=== PATIENT | male | born 1940 | race Caucasian/White ===

== ENCOUNTER 2017-01-06 07:52 | Outpatient (CLI) | payer MEDICARE ==
[~2017-01-06] VITALS: Ht 172.7 cm; Wt 90.9 kg
--- NOTE | ~2017-01-06 | HEMODYNAMI ---
PATIENT:LIV MAHMOOD MEDICAL RECORD: [id number] : 38 LOCATION:[facility] ADMISSION DATE: 01/06/17 Generatedon:01/06/201710:11 Patient name: LIV MAHMOOD Patient #: [id number] SSN: : 1940 Date of study: 01/06/2017 Page: Of Hemodynamic Procedure Report Patient Data Patient Demographics Procedure consent was obtained First Name: LIV Gender: Male Last Name: TIMOTEO : 1940 Middle Initial: P Age: 76 year(s) Patient #: [id number] Race: Additional ID: [id number] Contact details Address: [address] [place] [address] State: [place] City: [place] Zip code: [address] Past Medical History Allergies Allergen Reaction Date Comments Reported Other allergy 01/06/2017 adhesive Admission Admission Data Admission Date: 01/06/2017 Admission Time: 7:52 Admit Source: Other Lab Results Lab Result Date: 01/06/2017 Lab Result Time: 0:00 Biochemistry Name Units Result Min Max Creatinine mg/dl 1.2 --(---*)-- 0.6 1.3 CBC Name Units Result Min Max Hemoglobin g/dl 14.8 --(-*--)-- 13.5 17.5 Procedure Procedure Types Cath Procedure Diagnostic Procedure [facility] w/Coronaries FFR/IVUS Intra-Coronary IVUS Initial PCI Procedure Coronary Stent Initial Miscellaneous Procedures Moderate Sedation up to 30 minutes Procedure Description Procedure Date Procedure Date: 01/06/2017 Procedure Start Time: 9:48 Procedure End Time: 10:10 Procedure Staff Name Function Donte Sweeney MD Performing Physician Randy Fonseca RN Nurse Mahendra Vicente RT Scrub Kaitlynn Conner RT Monitor Procedure Data Cath Procedure Fluoroscopy Diagnostic fluoroscopy Total fluoroscopy Time: 7.1 time: 7.1 min min Diagnostic fluoroscopy Total fluoroscopy dose: dose: 1511 mGy 1511 mGy Contrast Material Contrast Material Type Amount (ml) Isovue 300 150 Entry Location Entry Primary Successful Side Size Upsize Upsize Entry Closure Schuster ccessful Closure Location (Fr) 1 (Fr) 2 (Fr) Remarks Device Remarks Radial Right 6 Fr Mechanical artery Short Compression Estimated blood loss: 10 ml Diagnostic catheters Device Type Used For End Catheter Placement Cordis RBL 4 catheter (NO LV Angiography CHARGE) Cordis RBL 4 catheter (NO Left Coronary CHARGE) Angiography Cordis RBL 4 catheter (NO Right Coronary CHARGE) Angiography Procedure Complications No complications Procedure Medications Medication Administration Route Dosage Oxygen NC 2 l/min Heparin Flush Bag added to field 2 bags (1000units/500ml NS) Lidocaine 2% added to field 20 0.9% NaCl I.V. 100 ml/hr Versed I.V. 1 mg Fentanyl I.V. 50 mcg Radial Cocktail added to field 1 syringe (Verapomil 2mg/Nitro 400mcg/Heparin 1500units) Versed I.V. 1 mg Fentanyl I.V. 50 mcg Versed I.V. 1 mg Fentanyl I.V. 50 mcg Heparin Bolus I.V. 4000 units Versed I.V. 1 mg Fentanyl I.V. 50 mcg Versed I.V. 1 mg Hemodynamics Rest HGB: 14.8 (g/dl) Heart Rate: 48 (bpm) Pressure Samples Time Site Value (mmHg) Purpose Heart Use Rate(bpm) 9:51 LV 101/15,18 Snapshot 52 Snapshots Pre Cath Intra NCS Post Cath Vital Signs Time Heart Resp SPO2 etCO2 [id number] NIBP (mmHg) Rhythm Pain Sedation Rate (ipm) (%) (mmHg) (mmHg) Status Level (bpm) 9:29:28 46 20 99 0 0 165/77(137) SB 0 (11) 10(A) , No pain 9:34:53 46 16 100 0 0 159/82(134) SB 0 (11) 10(A) , No pain 9:39:22 46 21 96 0 0 147/78(103) SB 0 (11) 10(A) , No pain 9:43:32 43 16 96 0 0 109/79(106) SB 0 (11) 10(A) , No pain 9:47:38 48 15 94 0 0 113/83(94) SB 0 (11) 10(A) , No pain 9:51:52 55 15 96 0 0 102/64(87) SB 0 (11) 9(A) , No pain 9:56:01 62 17 94 0 0 102/64(94) NSR 0 (11) 9(A) , No pain 10:00:11 64 17 93 0 0 118/65(95) NSR 0 (11) 9(A) , No pain 10:04:27 62 16 96 0 0 111/65(87) NSR 0 (11) 9(A) , No pain 10:09:39 56 17 97 0 0 116/65(94) SB 0 (11) 10(A) , No pain Medications Time Medication Route Dose Verified Delivered Reason Note s Effectiveness by by 9:28:24 Oxygen NC 2 l/min Donte Buffie Per physician Patel Fonseca RN 9:28:32 Heparin Flush added 2 bags Donte Donte used for Bag to Patel Sweeney MD procedure (1000units/500ml field NS) 9:28:39 Lidocaine 2% added 20ml Donte Donte used for to vial Patel Sweeney MD procedure field 9:28:51 0.9% NaCl I.V. 100 Donte Buffie Per physician ml/hr Patel Fonseca RN 9:46:53 Versed I.V. 1 mg Donte Buffie for sedation Patel Fonseca RN 9:46:59 Fentanyl I.V. 50 mcg Donte Buffie for sedation Patel Fonseca RN 9:50:46 Radial Cocktail added 1 Donte Buffie used for (Verapomil to syringe Patel Fonseca RN procedure 2mg/Nitro field 400mcg/Heparin 1500units) 9:50:55 Versed I.V. 1 mg Donte Buffie for sedation Patel Fonseca RN 9:50:58 Fentanyl I.V. 50 mcg Donte Buffie for sedation Patel Fonseca RN 9:53:14 Versed I.V. 1 mg Donte Buffie for sedation Patel Fonseca RN 9:53:18 Fentanyl I.V. 50 mcg Donte Buffie for sedation Patel Fonseca RN 9:57:23 Heparin Bolus I.V. 4000 Donte Buffie for veri fied units Patel Fonseca RN anticoagulation with dr sweeney 9:59:14 Versed I.V. 1 mg Donte Buffie for sedation Tauth MD Fonseca RN 9:59:18 Fentanyl I.V. 50 mcg Donte Padilla for sedation Patel Fonseca RN 10:05:00 Versed I.V. 1 mg Donte Padilla for sedation Patel Fonseca RN Procedure Log Time Note 9::09 Time tracking: Regular hours 9:08:14 Plan of Care:Hemodynamics will remain stable., Cardiac rhythm will remain stable., Comfort level will be maintained., Respiratory function will remain adequate., Patient/ family verbilizes understanding of procedure., Procedure tolerated without complication., Recovers from procedure without complications.. 9:10:17 Kaitlynn Counts RT(R) sent for patient. Start room use. 9:10:47 H&P Date Dictated: 10/08/2016 Greater than 30 days; new H&P dictated by physician. Or brief H&P completed.. 9:11:27 Lab Result : Creatinine 1.2 mg/dl 9:11:27 Lab Result : Hemoglobin 14.8 g/dl 9:23:02 Patient received from Pre/Post Procedure Room to CCL 1 Alert and oriented. Tansferred to table in Supine position. 9:23:03 Warm blankets applied, and brii hugger turned on for patient comfort. 9:23:04 Correct patient and procedure confirmed by team. 9:23:06 Signed procedure consent form obtained from patient. 9:23:07 ECG and BP/O2 sat monitors applied to patient. 9:28:09 Vital chart was started 9:28:24 Oxygen 2 l/min NC was given by Randy Fonseca RN; Per physician; 9:28:32 Heparin Flush Bag (1000units/500ml NS) 2 bags added to field was given by Donte Sweeney MD; used for procedure; 9:28:39 Lidocaine 2% 20ml vial added to field was given by Donte Sweeney MD; used for procedure; 9:28:46 Baseline sample Acquired. 9:28:51 0.9% NaCl 100 ml/hr I.V. was given by Randy Fonseca RN; Per physician; 9:28:59 Baseline sample Acquired. 9:29:07 Rhythm: sinus bradycardia 9:29:09 Full Disclosure recording started 9:29:13 Pre-procedure instructions explained to patient. 9:29:13 Pre-op teaching completed and patient verbalized understanding. 9:29:18 Family in waiting room. 9:29:20 Patient NPO since Midnight. 9:29:42 Patient allergic to Other allergyadhesive 9:29:45 Is the patient allergic to Iodine/contrast media? No. 9:29:48 Was the patient premedicated? No 9:30:21 Is patient on blood thinner?Yes 9:30:24 ACC The patient was administered the following blood thiners within the last 24 hours: ACCPlavix 9:30:26 Patient diabetic? No. 9:30:29 Previous problem with sedation/anesthesia? No ? 9:30:32 Snore? No 9:30:33 Sleep apnea? No 9:30:33 Deviated septum? No 9:30:34 Opens mouth fully? Yes 9:30:35 Sticks out tongue? Yes 9:30:38 Airway obstruction? No ? 9:30:42 Dentures? No ? 9:30:51 Pre procedure: right dorsailis pedis pulse 1+ Palpable, but thready & weak; easily obliterated 9:30:53 Patient pain scale 0/10 ?. 9:31:02 IV patent on arrival in left forearm with 0.9% NaCl at [facility]. 9:31:06 Lab results completed and on chart. 9:31:12 Right Radial & Right Groin area was prepped with chlora-prep and draped in sterile fashion 9:31:13 Alarms reviewed by R. N. 9:31:13 Sharps counted by scrub and verified by R.N. 9:33:13 Admit Source: Other 9:33:36 Use device set Radial Dx 9:33:36 Acist Syringe opened to sterile field. 9:33:37 Medline Cath Pack opened to sterile field. 9:33:40 Bag Decanter opened to sterile field. 9:33:41 Terumo 6Fr Slender Glidesheath opened to sterile field. 9:33:42 St Toney 260cm J .035 wire opened to sterile field. 9:33:43 Acist Hand Control opened to sterile field. 9:33:43 Acist Manifold opened to sterile field. 9:33:53 Tegaderm 4 x 4 opened to sterile field. 9:38:52 Zero performed for pressure channel P1 9:39:33 Physician paged 9:46:31 Final Timeout: patient, procedure, and site verified with staff and physician. All members of the team are in agreement. 9:46:34 Right Radial site verified by team. 9:46:36 Physical assessment completed. ASA score P 2 - A patient with mild systemic disease as per Donte Sweneey MD. 9:46:39 Sedation plan: IV Moderate Sedation Versed, Fentanyl 9:46:53 Versed 1 mg I.V. was given by Randy Fonseca RN; for sedation; 9:46:59 Fentanyl 50 mcg I.V. was given by Randy Fonseca RN; for sedation; 9:48:28 Procedure started. 9:48:39 Local anesthetic to right radial artery with Lidocaine 2% by Donte Sweeney MD.INITIAL ACCESS ONLY 9:49:52 A 6 Fr Short sheath was inserted into the Right Radial artery 9:50:29 A Cordis RBL 4 catheter (NO CHARGE) was advanced over the wire and used for LV Angiography. 9:50:46 Radial Cocktail (Verapomil 2mg/Nitro 400mcg/Heparin 1500units) 1 syringe added to field was given by Randy Fonseca RN; used for procedure; 9:50:55 Versed 1 mg I.V. was given by Randy Fonseca RN; for sedation; 9:50:58 Fentanyl 50 mcg I.V. was given by Ranyd Fonseca RN; for sedation; 9:51:09 LV gram done using PEDERSEN 9:51:10 LV hemodynamics recorded. 9:51:13 Injector settings: Ml/sec: 5, Volume: 15, 9:52:29 EF : 50 % 9:52:49 A Cordis RBL 4 catheter (NO CHARGE) was advanced over the wire and used for Left Coronary Angiography. 9:53:14 Versed 1 mg I.V. was given by Randy Fonseca RN; for sedation; 9:53:18 Fentanyl 50 mcg I.V. was given by Randy Fonseca RN; for sedation; 9:54:28 A Cordis RBL 4 catheter (NO CHARGE) was advanced over the wire and used for Right Coronary Angiography. 9:54:36 Peerz BasixCompak Inflation Kit opened to sterile field. 9:54:36 Wise Whisper J 300cm 0.014 guide wire opened to sterile field. 9:55:20 BioDetegotronic Launcher 6Fr EBU 4.0 guide catheter opened to sterile field. 9:55:30 Catheter removed. 9:55:41 ACC PCI Site: mLAD has 80% stenosis. 9:56:03 Gooding Red Devil Eagleye IVUS Catheter opened to sterile field. 9:56:41 6 Fr EBU 4.0 guide catheter was inserted over the wire 9:57:08 Whisper wire advanced. 9:57:23 Heparin Bolus 4000 units I.V. was given by Randy Fonseca RN; for anticoagulation; verified with dr sweeney 9:57:35 Procedure type changed to Cath procedure, Diagnostic procedure, LHC, LHC w/Coronaries, FFR/IVUS, Intra-Coronary IVUS Initial, PCI procedure, Coronary Stent Initial, Miscellaneous Procedures, Moderate Sedation up to 30 minutes 9:58:01 IVUS catheter advanced over wire. 9:58:21 IVUS pass to LAD lesion performed. 9:59:02 IVUS catheter removed over wire. 9:59:14 Versed 1 mg I.V. was given by Randy Fonseca RN; for sedation; 9:59:18 Fentanyl 50 mcg I.V. was given by Randy Fonseca RN; for sedation; 10:01:34 Inflation Number: 1 A Medtronic Resolute 2.5 X 26 stent was prepped and advanced across the Mid LAD. The stent was deployed at 15 CECELIA for 0:06 (min:sec). 10:02:54 Stent catheter was removed intact over wire. 10:04:24 Inflation Number: 1 A Medtronic Resolute 3.5 X 38 stent was prepped and advanced across the Prox LAD. The stent was deployed at 13 CECELIA for 0:06 (min:sec). 10:04:53 Stent catheter was removed intact over wire. 10:04:53 Wire removed. 10:04:54 Guide catheter removed. 10:05:00 Versed 1 mg I.V. was given by Randy Fonseca RN; for sedation; 10:05:07 Sheath removed intact; hemostasis achieved with Mechanical Compression to the Right Radial artery. 10:05:14 Procedure ended.(Physican Out) 10:05:28 Terumo TR Band Standard opened to sterile field. 10:05:46 Fluoroscopy time 07.10 minutes. 10:05:50 Fluoroscopy dose: 1511 mGy 10:05:50 Flurop Dose total: 1511 10:05:54 Contrast amount:Isovue 300 150ml. 10:05:55 Sharps counted by scrub and verified by R.N. 10:05:58 TR band inflated with 12cc of air. 10:06:00 Insertion/operative site no bleeding no hematoma. 10:06:08 Post right radial artery:stable, clean and dry 10:06:10 Post Procedure Pulses reassessed and unchanged 10:06:13 Post-procedure physical assessment completed. ASA score P 2 - A patient with mild systemic disease as per Donte Sweeney MD. 10:06:16 Post procedure rhythm: unchanged. 10:06:18 Estimated blood loss: 10 ml 10:06:20 Post procedure instruction explained to patient.Patient verbalizes understanding. 10:06:20 Patient needs reinforcement of post procedure teaching. 10:06:43 Procedure Complication : No complications 10:06:45 See physician's report for complete and final results. 10:07:31 Procedure and supply charges have been captured, reviewed, submitted and are correct. 10:10:34 Vital chart was stopped 10:10:36 Report given to Pre/Post Procedure Room. 10:10:39 Patient transfered to Pre/Post Procedure Room with Stretcher. 10:10:42 Procedure ended. 10:10:42 Full Disclosure recording stopped 10:10:47 End room use (Document Last) Intervention Summary Intervention Notes Time ActionType Lesion and Equipment Action# Pressure Duration Attributes Used 10:01:34 Place stent Mid LAD Medtronic 1 15 00:06 Resolute 2.5 X 26 stent 10:04:24 Place stent Prox LAD Medtronic 1 13 00:06 Resolute 3.5 X 38 stent Device Usage Item Name Manufacture Quantity Catalog Hospital Part Current Minimal Lot# / Number Charge Number Stock Stock Serial# Code Acist Acist 1 [id number] [id number] 349179 420604 20 Syringe Medical Systems Inc Medline Cardinal 1 [id number] 771255 84506 578056 5 Cath Pack Health Bag Microtek 1 2001S 798304 65554 732378 5 Wyldfire. Terumo 6Fr Terumo 1 [id number] 840831 867820 514397 [address] Toney St Toney 1 298503 145437 615999 483217 30 260cm J .035 wire Acist Hand Acist 1 31267 281083 503577 715524 5 Control Medical Systems Inc Acist Acist 1 69488 247096 519287 873335 5 Manifold Medical Systems Inc Tegaderm 4 3M 1 [id number] 285130 334318 116178 5 x 4 Cordis RBL Cardinal 1 [id number] 885549 966617 5 4 catheter Health (NO CHARGE) Merit Merit 1 [id number] 772086 292692 078610 15 BasixCompak Medical Inflation Kit Wise Wise 1 [id number] 741663 748475 131314 5 Whisper J Vascular 300cm 0.014 guide wire Medtronic Medtronic 1 [id number] 884169 85352 348524 1 Launcher 6Fr EBU 4.0 guide catheter Gooding Gooding 1 [id number] 317476 507864 779459 8 Red Devil Eagleye IVUS Catheter Medtronic Medtronic 1 [id number] 628403 275695 8 [id number] Resolute 2.5 X 26 stent Medtronic Medtronic 1 [id number] 799579 828468 0 [id number] Resolute 3.5 X 38 stent Terumo TR Terumo 1 [id number] 984678 576495 454496 40 Band Standard Signature Audit Chandler Stage Time Signature Unsigned Intra-Procedure 01/06/2017 Kaitlynn 10:10:57 AM Counts RT(R) Signatures Monitor : Kaitlynn Signature : Counts RT Date : Time : [id number] [place] [address]
[2017-01-06] MEDS ORDERED: KLONOPIN1 MG PO (08:12)
[2017-01-06] MEDS ORDERED: FLOMAX0.4 MG PO (08:13)
[2017-01-06] MEDS ORDERED: NORVASC5 MG PO (08:13)
[2017-01-06] MEDS ORDERED: TRICOR145 MG PO (08:13)
[2017-01-06] MEDS ORDERED: LOTENSIN20 MG PO (08:14)
[2017-01-06] MEDS ORDERED: FLOVENT DI50 MCG/DIS INH (08:15)
[2017-01-06] MEDS ORDERED: FLUTICASONE PRO16 GM NASAL (08:15)
[2017-01-06] MEDS ORDERED: ULTRAM50 MG PO (08:16)
[2017-01-06] MEDS ORDERED: LEXAPRO20 MG PO (08:16)
[2017-01-06] MEDS ORDERED: KRILL OIL 1,001 EAC1 PO (08:17)
[2017-01-06] MEDS ORDERED: LYRICA50 MG PO (08:17)
[2017-01-06] MEDS ORDERED: AMBIEN10 MG PO (08:17)
[2017-01-06] MEDS ORDERED: BAYER CHEWABLE81 MG PO (08:18)
[2017-01-06] MEDS ORDERED: PREVACID15 MG PO (08:19)
[2017-01-06] MEDS ORDERED: PRAVACHOL80 MG PO (08:19)
[2017-01-06] MEDS ORDERED: XANAX0.25 MG PO (08:20)
[2017-01-06] MEDS ORDERED: ATIVAN1 MG PO (08:20)
[2017-01-06 08:22] VITALS: BP 150/69; Ht 172.7 cm; Wt 90.9 kg
[2017-01-06 08:34] LABS: BASOPHILS 0.6 % (0.0-2.0); EOSINOPHILS 4.3 % (0-7); HEMOGLOBIN 14.8 g/dL (13.5-17.5); IMMATURE GRANULOCYTES 0.4 % (0-5); MCH 30.8 pg (26.0-34.0); MCHC 33.6 g/dL (31.0-37.0); MCV 91.5 fL (80.0-100.0); MEAN PLATELET VOLUME 9.3 fL (7.4-10.4); MONOCYTES 11.3 % (2-11); NEUTROPHILS 50.4 % (40-80); PLATELET COUNT 138 10x3/uL (130-400); RBC 4.81 10x6/uL (4.20-6.10); RDW 12.7 % (11.5-14.5); WBC 4.7 10x3/uL (4.8-10.8)
[2017-01-06 08:42] LABS: ANION GAP 10.4 mmol/L (8-16); CARBON DIOXIDE 28.7 mmol/L (21.0-32.0); CREATININE - SERUM 1.2 mg/dL (0.6-1.3); POTASSIUM - SERUM 4.1 mmol/L (3.5-5.1)
--- NOTE | 2017-01-06 10:29 | NUR ---
1020 RECEIVED PT FROM SET UP MACHINIST, PT IS ALERT, DENIES ANY C/O. TR BAND CDI TO RIGHT WRIST, AREA IS FREE FROM BLEEDING OR HEMATOMA. CAP REFILL IS BRISK, FINGERS WARM TO TOUCH. PO FLUIDS SERVED, AT BEDSIDE. CALL LIGHT IN REACH.
[2017-01-06] MEDS ORDERED: PLAVIX75 MG PO (10:39)
--- NOTE | 2017-01-06 11:29 | NUR ---
1035 TR BAND CDI, NO BLEEDING OR HEMATOMA NOTED. NSR ON MONITOR, VSS. PT DENIES ANY C/O. AT BEDSIDE.
--- NOTE | 2017-01-06 11:33 | NUR ---
1105 PT DENIES NEEDS A THIS TIME, CATH SITE FREE FROM BLEEDING OR HEMATOMA, TR BAND AND WRIST BRACE IN PLACE. PT DENIES ANY C/O CHEST PAIN.
--- NOTE | 2017-01-06 12:05 | NUR ---
1205 PT HAS ANN SANDWICH WITH NO C/O NAUSEA. DENIES ANY C/O CHEST DISCOMFORT. HAS VOIDED USING URINAL. CATH SITE FREE FROM BLEEDING OR HEMATOMA, TR BAND AND WRIST BRACE IN PLACE. PT DENIES NEEDS AT THIS TIME.
--- NOTE | 2017-01-06 13:03 | NUR ---
1300 PT DENIES ANY C/O. CATH SITE AREA IS FREE FROM BLEEDING OR HEMATOMA. SINUS BRADYCARDIA PER MONITOR, PT DENIES ANY C/O. AT BEDSIDE.
--- NOTE | 2017-01-06 13:13 | NUR ---
2 CC AIR REMOVED FROM TR BAND WITH NO BLEEDING NOTED. CHEST PAIN IS DENIED
--- NOTE | 2017-01-06 15:21 | NUR ---
1410 REVIEWED DC INSTRUCTIONS WITH PT AND WHO VERBALIZE UNDERSTANDING. CATH SITE REMAINS FREE FROM BLEEDING/HEMATOMA. PT IS DRESSED FOR DC. PT ESCORTED TO PRIVATE AUTO VIA WC BY STAFF WITH DRIVING HIM HOME.
--- NOTE | 2017-01-11 10:08 | HP ---
PATIENT: LIV MAHMOOD MEDICAL RECORD: [id number] ACCOUNT: [id number] LOCATION:[facility] : 38 ADMISSION DATE: 01/06/17 HISTORY AND PHYSICAL EXAMINATION ADMITTING DIAGNOSES: 1. Angina. 2. Coronary artery disease. 3. Previous percutaneous transluminal coronary angioplasty stent. 4. Hypertension. 5. Hyperlipidemia. 6. Stress test abnormal inferoapical reversible ischemia. HISTORY OF PRESENT ILLNESS: This is a gentleman with a past history of coronary artery disease who presents with anginal symptomatology, found to have abnormal nuclear stress test, now brought for cardiac catheterization due to continued anginal symptomatology. PHYSICAL EXAMINATION: GENERAL APPEARANCE: Well-nourished, well-developed, appears stated age. Level of distress, comfortable. PSYCHIATRIC: Mental status, alert, normal affect. Orientation, oriented to time, place and person. EYES: Lids and conjunctiva, noninjected. No discharge, no pallor. ENT: Lips, teeth, gums, normal dentition. Oropharynx, no cyanosis, no pallor. NECK: Carotid arteries, bilateral normal upstroke, no bruits, no thrills. JUGULAR VEINS: No jugular venous pressure or distention. CERVICAL LYMPH NODES: Nontender, nonenlarged. THYROID: Not enlarged. Nontender. No nodules. LUNGS: Respiratory effort, unlabored. CHEST: Normal curvature. No thoracic deformity. No chest wall tenderness. Percussion, resonant. Auscultation, clear. No wheezes, no rales, no rhonchi. CARDIOVASCULAR: Precordial exam, nondisplaced. No heaves or pericardial thrills. Rate and rhythm, regular. Heart sounds, normal S1, normal S2. No S3, no gallop, no rub. Systolic murmur, not heard. Diastolic murmur, not heard. EXTREMITIES: No cyanosis, no edema. Peripheral pulses, full and equal in all extremities, except as noted. No bruits appreciated. ABDOMEN: Soft, nondistended. Normal aorta. No bruit. Nontender. No masses. Liver, nontender, no hepatomegaly. Spleen, nontender, no splenomegaly. MUSCULOSKELETAL: No joint tenderness. No joint swelling. No erythema. NEUROLOGICAL: Normal gait, normal strength, normal tone. SKIN: Warm and dry. REVIEW OF SYSTEMS: The patient reports easy bruising but reports no swollen glands. The patient reports no fever, no night sweats, no significant weight gain, no significant weight loss. No significant exercise tolerance. The patient reports no dry eyes, no irritation, no vision change. Patient reports no difficulty hearing and no ear pain. Patient reports no frequent nose bleeds or nose and sinus problems. Patient reports on arm pain on exertion. No shortness of breath while lying down. No history of heart murmur. Patient reports no cough, no wheezing or coughing up blood. Patient reports no abdominal pain, no vomiting. Normal appetite. No diarrhea and not vomiting blood. No nausea and no constipation. Patient reports no incontinence. No difficulty urinating. No hematuria. No increased frequency. Patient reports no muscle aches. No weakness, no arthralgias, no back pain. No swelling of the HISTORY AND PHYSICAL [id number] LIV MAHMOOD extremities. Patient reports no abnormal mole, no jaundice, no rashes. Reports no loss of consciousness. No weakness and no numbness. No seizures, dizziness, or headaches. The patient reports no depression, no sleep disturbance, feeling safe in a relationship and no alcohol abuse. Patient reports on fatigue. Reports no runny nose or sinus pressure. No itching, no hives, and no frequent sneezing. OVERALL IMPRESSION: Anginal symptomatology with abnormal nuclear stress test. We will proceed with coronary angiography. Further care depends upon findings of the angiography. TRANSINT:[id number] Voice Confirmation ID: [id number] DOCUMENT ID: [id number] CHAPIS HIGUERA MD at 1008 CC: [id number] DICTATION DATE: 01/06/1746 SENIOR MEDICAL TRANSCRIPTIONIST: 01/06/17 1107 DEP CLI 01/06/17 [facility] [address] [place] [address]
--- NOTE | 2017-01-11 10:08 | OP ---
PATIENT NAME: LIV MAHMOOD MEDICAL RECORD: [id number] :38 LOCATION:D.CAT ADMISSION DATE: SURGEON: CHAPIS HIGUERA MD DATE OF OPERATION: 01/06/2017 PROCEDURES: 1. PTCA stent LAD. 2. Left heart catheterization. 3. Selective coronary angiography. 4. Intravascular ultrasound. 5. Left ventriculogram. INDICATION: Angina and coronary artery disease. PROCEDURE IN DETAIL: After informed consent was obtained and after a detailed explanation of the risks, benefits as well as alternative therapies, the patient elected to proceed with angiogram and angioplasty. The right radial area was prepped and draped in normal sterile fashion. The right radial artery was cannulated via modified Seldinger technique with placement of 6-Haitian sheath. All catheters exchanged through this sheath. FINDINGS: Left ventriculogram was performed in standard 30-degree PEDERSEN view reveals preserved cardiac wall motion, ejection fraction 55% to 60%. SELECTIVE CORONARY ANGIOGRAPHY: 1. Left main has no significant angiographic disease. 2. Left anterior descending has a long area greater than 80% stenosis confirmed by intravascular ultrasound through the entire mid vessel. 3. Left circumflex shows moderate irregularities, but no flow-limiting stenosis. 4. Right coronary is tortuous, calcified and has a 90% stenosis in the mid vessel. The right coronary artery is better amenable via groin approach with 7-Haitian system. PERCUTANEOUS TRANSLUMINAL CORONARY ANGIOPLASTY OF THE LAD: The stent used were 3.5 x 38 and 2.5 x 26, both Resolute stents. Result was 0% residual stenosis. OVERALL IMPRESSION: Successful percutaneous transluminal coronary angioplasty stent of the left anterior descending going from multiple areas of greater than 80% initial stenosis to 0% residual. PLAN: PTCA stent of the RCA in the near future via groin approach with 7-Haitian system. TRANSINT:[id number] Voice Confirmation ID: [id number] DOCUMENT ID: [id number] CHAPIS HIGUERA MD at 1008 CC: [id number] DICTATION DATE: 01/06/17 1011 SERVICE ESTABLISHMENT ATTENDANT: 01/06/17 1242 DEP CLI 01/06/17 [place] [address]
== END 2017-01-06 14:10 | disposition home or self-care (01) ==
LOC: D.CATH 07:52
PROVIDERS: Internal Medicine Interventional Cardiology
DX: I25.119 Atherosclerotic heart disease of native coronary artery with unspecified angina pectoris (principal); Z95.5 Presence of coronary angioplasty implant and graft

== ENCOUNTER 2017-01-08 07:13 | Outpatient (CLI) | payer MEDICARE ==
[~2017-01-08] VITALS: Ht 172.7 cm; Wt 90.9 kg
--- NOTE | ~2017-01-08 | HEMODYNAMI ---
PATIENT:LIV MAHMOOD MEDICAL RECORD: [id number] : 38 LOCATION:[facility] ADMISSION DATE: 01/08/17 Generatedon:01/08/20179:44 Patient name: LIV MAHMOOD Patient #: [id number] SSN: : 1940 Date of study: 01/08/2017 Page: Of Hemodynamic Procedure Report Patient Data Patient Demographics Procedure consent was obtained First Name: LIV Gender: Male Last Name: TIMOTEO : 1940 Middle Initial: P Age: 76 year(s) Patient #: [id number] Race: Additional ID: [id number] Contact details [address]: [address] [place] [address] State: [place] City: [place] Zip code: [address] Past Medical History Allergies Allergen Reaction Date Comments Reported Other allergy 01/06/2017 adhesive Adhesive tape 01/08/2017 Admission Admission Data Admission Date: 01/08/2017 Admission Time: 7:13 Lab Results Lab Result Date: 01/08/2017 Lab Result Time: 0:00 Biochemistry Name Units Result Min Max Creatinine mg/dl 1.2 --(---*)-- 0.6 1.3 CBC Name Units Result Min Max Hemoglobin g/dl 14.4 --(*---)-- 13.5 17.5 Procedure Procedure Types Cath Procedure PCI Procedure Coronary Stent Initial Miscellaneous Procedures Moderate Sedation up to 30 minutes Procedure Description Procedure Date Procedure Date: 01/08/2017 Procedure Start Time: 9:23 Procedure End Time: 9:41 Procedure Staff Name Function Donte Sweeney MD Performing Physician Randy Fonseca RN Nurse Kaitlynn Conner RT Monitor Brock Gallagher RT Scrub Procedure Data Cath Procedure Fluoroscopy Diagnostic fluoroscopy Total fluoroscopy Time: 8.8 time: 8.8 min min Diagnostic fluoroscopy Total fluoroscopy dose: 603 dose: 603 mGy mGy Contrast Material Contrast Material Type Amount (ml) Isovue 300 63 Entry Location Entry Primary Successful Side Size Upsize Upsize Entry Closure Succes sful Closure Location (Fr) 1 (Fr) 2 (Fr) Remarks Device Remarks Femoral Right 7 Fr Exoseal artery Short Estimated blood loss: 10 ml Procedure Complications No complications Procedure Medications Medication Administration Route Dosage Oxygen NC 2 l/min Lidocaine 2% added to field 20 Heparin Flush Bag added to field 2 bags (1000units/500ml NS) 0.9% NaCl I.V. 100 ml/hr Versed I.V. 1 mg Fentanyl I.V. 50 mcg Heparin Bolus I.V. 4000 units Versed I.V. 1 mg Fentanyl I.V. 50 mcg Versed I.V. 1 mg Fentanyl I.V. 50 mcg Versed I.V. 1 mg Fentanyl I.V. 50 mcg Versed I.V. 1 mg Hemodynamics Rest HGB: 14.4 (g/dl) Heart Rate: 45 (bpm) Snapshots Pre Cath Intra NCS Post Cath Vital Signs Time Heart Resp SPO2 etCO2 [id number] NIBP (mmHg) Rhythm Pain Sedation Rate (ipm) (%) (mmHg) (mmHg) Status Level (bpm) 8:59:04 43 20 99 0 0 148/79(136) NSR 0 (11) 10(A) , No pain 9:03:26 45 16 100 0 0 143/83(124) NSR 0 (11) 10(A) , No pain 9:08:31 46 19 99 0 0 144/82(129) NSR 0 (11) 10(A) , No pain 9:13:42 48 17 96 0 0 136/72(113) NSR 0 (11) 10(A) , No pain 9:18:57 46 17 94 0 0 124/76(98) NSR 0 (11) 10(A) , No pain 9:22:59 50 15 94 0 0 121/87(97) NSR 0 (11) 9(A) , No pain 9:27:15 63 17 94 0 0 127/63(93) NSR 0 (11) 9(A) , No pain 9:31:35 51 18 95 0 0 105/58(81) NSR 0 (11) 9(A) , No pain 9:35:43 53 18 96 0 0 117/70(98) NSR 0 (11) 9(A) , No pain 9:39:55 56 16 98 0 0 125/71(97) NSR 0 (11) 10(A) , No pain Medications Time Medication Route Dose Verified Delivered Reason Notes Effectiveness by by 8:59:17 Oxygen NC 2 Donte Buffie used for l/min Patel Fonseca RN procedure 9:01:07 Lidocaine 2% added 20ml Donte Donte for local to vial Patel Sweeney MD anesthetic field 9:01:13 Heparin Flush added 2 Donte Donte used for Bag to bags Patel Sweeney MD procedure (1000units/500ml field NS) 9:03:39 0.9% NaCl I.V. 100 Donte Buffie Per physician ml/hr Patel Fonseca RN 9:15:32 Versed I.V. 1 mg Donte Buffie for sedation Patel Fonseca RN 9:15:38 Fentanyl I.V. 50 Donte Buffie for sedation mcg Patel Fonseca RN 9:19:56 Versed I.V. 1 mg Donte Buffie for sedation Patel Fonseca RN 9:19:59 Fentanyl I.V. 50 Donte Buffie for sedation mcg Patel Fonseca RN 9:24:45 Heparin Bolus I.V. 4000 Donte Buffie for verifie d units Patel Fonseca RN anticoagulation with dr sweeney 9:26:24 Versed I.V. 1 mg Donte Buffie for sedation Patel Fonseca RN 9:26:27 Fentanyl I.V. 50 Donte Buffie for sedation mcg Patel Fonseca RN 9:30:36 Versed I.V. 1 mg Donte Buffie for sedation Patel Fonseca RN 9:30:40 Fentanyl I.V. 50 Donte Buffie for sedation mcg Patel Fonseca RN 9:36:03 Versed I.V. 1 mg Donte Buffie for sedation Patel Fonseca RN Procedure Log Time Note 8:45:18 Randy Fonseca RN sent for patient. Start room use. 8:45:19 Time tracking: Regular hours 8:45:23 Plan of Care:Hemodynamics will remain stable., Cardiac rhythm will remain stable., Comfort level will be maintained., Respiratory function will remain adequate., Patient/ family verbilizes understanding of procedure., Procedure tolerated without complication., Recovers from procedure without complications.. 8:45:27 Use device set Femoral PCI 8:49:13 PCI Cath status Elective 8:49:28 Patient received from Pre/Post Procedure Room to CCL 1 Alert and oriented. Tansferred to table in Supine position. 8:49:29 Warm blankets applied, and brii hugger turned on for patient comfort. 8:49:30 Correct patient and procedure confirmed by team. 8:49:31 Signed procedure consent form obtained from patient. 8:49:32 ECG and BP/O2 sat monitors applied to patient. 8:49:33 Full Disclosure recording started 8:57:58 Vital chart was started 8:58:03 Rhythm: sinus bradycardia 8:59:04 H&P Date Dictated: 01/06/2017 Within 30 days and on chart., H&P Addendum completed by physician on day of procedure. (MUST COMPLETE FOR ALL OUTPATIENTS). 8:59:05 Pre-procedure instructions explained to patient. 8:59:05 Pre-op teaching completed and patient verbalized understanding. 8:59:07 Family in waiting room. 8:59:09 Patient NPO since Midnight. 8:59:16 Patient allergic to Adhesive tape 8:59:17 Oxygen 2 l/min NC was given by Randy Fonseca RN; used for procedure; 8:59:19 Is the patient allergic to Iodine/contrast media? No. 8:59:21 Is patient on blood thinner?Yes 8:59:24 ACC The patient was administered the following blood thiners within the last 24 hours: ACCPlavix 8:59:26 Patient diabetic? No. 8:59:52 Previous problem with sedation/anesthesia? No ? 8:59:53 Snore? No 8:59:54 Sleep apnea? No 8:59:55 Deviated septum? No 8:59:56 Opens mouth fully? Yes 8:59:57 Sticks out tongue? Yes 9:00:05 Airway obstruction? No ? 9:00:06 Dentures? No ? 9:00:10 Pre procedure: right dorsailis pedis pulse 2+ Normal; easily identifiable; not easily obliterated 9:00:12 Patient pain scale 0/10 ?. 9:00:16 IV patent on arrival in left hand with 0.9% NaCl at KVO. 9:00:38 Lab Result : Creatinine 1.2 mg/dl 9:00:38 Lab Result : Hemoglobin 14.4 g/dl 9:00:42 Lab results completed and on chart. 9:00:45 Right groin area was prepped with chlora-prep and draped in sterile fashion 9:00:45 Alarms reviewed by R. N. 9:00:46 Sharps counted by scrub and verified by R.N. 9:01:07 Lidocaine 2% 20ml vial added to field was given by Donte Sweeney MD; for local anesthetic; 9:01:13 Heparin Flush Bag (1000units/500ml NS) 2 bags added to field was given by Donte Sweeney MD; used for procedure; 9:02:38 Acist Syringe opened to sterile field. 9:02:39 Acist Hand Control opened to sterile field. 9:02:39 Bag Decanter opened to sterile field. 9:02:40 Medline Cath Pack opened to sterile field. 9:02:44 St Toney 260cm J .035 wire opened to sterile field. 9:02:45 Merit BasixCompak Inflation Kit opened to sterile field. 9:02:45 Acist Manifold opened to sterile field. 9:02:46 Tegaderm 4 x 4 opened to sterile field. 9:02:47 Terumo 7Fr [place] Sheath opened to sterile field. 9:03:39 0.9% NaCl 100 ml/hr I.V. was given by Randy Fonseca RN; Per physician; 9:05:39 Baseline sample Acquired. 9:09:20 Physician paged 9:15:01 Zero performed for pressure channel P1 9:15:05 Final Timeout: patient, procedure, and site verified with staff and physician. All members of the team are in agreement. 9:15:07 Right groin site verified by team. 9:15:11 Physical assessment completed. ASA score P 2 - A patient with mild systemic disease as per Donte Sweeney MD. 9:15:15 Sedation plan: IV Moderate Sedation Versed, Fentanyl 9:15:32 Versed 1 mg I.V. was given by Randy Fonseca RN; for sedation; 9:15:38 Fentanyl 50 mcg I.V. was given by Randy Fonseca RN; for sedation; 9:19:56 Versed 1 mg I.V. was given by Randy Fonseca RN; for sedation; 9:19:59 Fentanyl 50 mcg I.V. was given by Randy Fonseca RN; for sedation; 9:23:02 Procedure started. 9:23:08 Local anesthetic to right femoral artery with Lidocaine 2% by Donte Sweeney MD.INITIAL ACCESS ONLY 9:23:35 Trent Sci Choice PT Extra Support J 300cm .014 gu opened to sterile field. 9:23:44 Medtronic Launcher 7Fr AR 2.0 guide catheter opened to sterile field. 9:23:59 A 7 Fr Short sheath was inserted into the Right Femoral artery 9:24:06 7 Fr AR 2.0 guide catheter was inserted over the wire 9:24:45 Heparin Bolus 4000 units I.V. was given by Randy Fonseca RN; for anticoagulation; verified with dr sweeney 9:25:55 Choice PT ES wire advanced. 9:26:24 Versed 1 mg I.V. was given by Randy Fonseca RN; for sedation; 9:26:27 Fentanyl 50 mcg I.V. was given by Randy Fonseca RN; for sedation; 9:29:26 The Medtronic Integrity 3.5 X 18 stent was advanced then removed because of failure to cross lesion 9:30:36 Versed 1 mg I.V. was given by Randy Fonseca RN; for sedation; 9:30:40 Fentanyl 50 mcg I.V. was given by Randy Fonseca RN; for sedation; 9:31:43 Guideliner 6Fr Catheter opened to sterile field. 9:32:01 The Trent Sci [place]asco 3.5 X 20 balloon was advanced and then removed because of failure to cross lesion 9:33:10 6 Fr Guidliner guide catheter was inserted over the wire 9:34:29 Inflation number: 1 A Trent Sci [place] 3.5 X 20 balloon was prepped and advanced across the Mid RCA, then inflated to 13 CECELIA for 0:09 (min:sec). 9:34:38 Balloon removed over the wire. 9:36:03 Versed 1 mg I.V. was given by Randy Fonseca RN; for sedation; 9:37:15 Inflation Number: 2 A Medtronic Integrity 3.5 X 18 stent was prepped and advanced across the Mid RCA. The stent was deployed at 13 CECELIA for 0:11 (min:sec). 9:37:39 Inflation number: 3 The stent balloon was then re-inflated across the Mid RCA to 17 CECELIA for 0:08 (min:sec). 9:37:49 Stent catheter was removed intact over wire. 9:38:03 Wire removed. 9:38:03 Guide catheter removed. 9:38:05 Guide catheter removed. 9:38:42 Sheath removed intact; hemostasis achieved with Exoseal to the Right Femoral artery. 9:38:45 Procedure ended.(Physican Out) 9:39:10 Fluoroscopy time 08.80 minutes. 9:39:17 Flurop Dose total: 603 9:39:17 Fluoroscopy dose: 603 mGy 9:39:22 Contrast amount:Isovue 300 63ml. 9:39:23 Sharps counted by scrub and verified by R.N. 9:39:24 Insertion/operative site no bleeding no hematoma. 9:39:27 Post-op/insertion site Right Femoral artery dressed using a 4 x 4 and Tegaderm. 9:39:30 Post right femoral artery:stable, clean and dry 9:39:32 Post Procedure Pulses reassessed and unchanged 9:39:37 Post-procedure physical assessment completed. ASA score P 2 - A patient with mild systemic disease as per Donte Sweeney MD. 9:39:40 Post procedure rhythm: unchanged. 9:39:42 Estimated blood loss: 10 ml 9:39:44 Post procedure instruction explained to patient.Patient verbalizes understanding. 9:39:44 Patient needs reinforcement of post procedure teaching. 9:39:58 Procedure type changed to Cath procedure, PCI procedure, Coronary Stent Initial, Miscellaneous Procedures, Moderate Sedation up to 30 minutes 9:40:05 Procedure Complication : No complications 9:40:07 See physician's report for complete and final results. 9:40:29 Cordis 7Fr Exoseal opened to sterile field. 9:41:30 Procedure and supply charges have been captured, reviewed, submitted and are correct. 9:41:33 Vital chart was stopped 9:41:36 Report given to Pre/Post Procedure Room. 9:41:42 Patient transfered to Pre/Post Procedure Room with Stretcher. 9:41:50 Procedure ended. 9:41:50 Full Disclosure recording stopped 9:41:53 End room use (Document Last) Intervention Summary Intervention Notes Time ActionType Lesion and Equipment Action# Pressure Duration Attributes Used 9:29:26 Discard Medtronic Stent Integrity 3.5 X 18 stent 9:32:01 Discard Trent Balloon Sci Anasco 3.5 X 20 balloon 9:34:29 Inflate Mid RCA Trent 1 13 00:09 balloon Sci [place]asco 3.5 X 20 balloon 9:37:15 Place stent Mid RCA Medtronic 2 13 00:11 Integrity 3.5 X 18 stent 9:37:39 Reinflate Mid RCA Medtronic 3 17 00:08 stent Integrity balloon 3.5 X 18 stent Device Usage Item Name Manufacture Quantity Catalog Number Hospital Part Current Mini mal Lot# / Charge Number Stock Stock Serial# Code Acist Acist 1 65832 [id number] [id number] 865920 20 Syringe Medical Systems Inc Acist Hand Acist 1 60571 296971 667485 696687 5 PressConnect [employer] Inc Bag Microtek 1 2002S 450698 55829 003572 5 Ideal Implant. Medline Cardinal 1 [id number] 903563 53162 [address]90 [address] Toney St Toney 1 879106 724839 894243 290389 30 260cm J .035 wire Merit Merit 1 [id number] 573815 836929 669515 15 Zeugma Systems Medical Inflation Kit Acist Acist 1 10189 286881 580799 532580 5 [facility] [employer] Inc Tegaderm 4 3M 1 1626W 903186 827599 398387 5 x 4 Terumo 7Fr Terumo 1 [id number] 398727 843129 081447 5 [place] Sheath Trent Sci Trent 1 [id number] 595778 5 Choice PT Scientific Extra Support J 300cm .014 gu Medtronic Medtronic 1 [id number] 076374 005849 580093 0 Launcher 7Fr AR 2.0 guide catheter Medtronic Medtronic 1 [id number] 656400 226437 1 [id number] Integrity 3.5 X 18 stent Guideliner Vascular 1 5571 395635 962277 802086 1 6Fr Solutions Catheter Trent Sci Trent 1 [id number] 634531 513670 917674 1 Anasco Scientific 3.5 X 20 balloon Cordis 7Fr Cardinal 1 EX700 074769 823358 514887 5 The Smartphone [facility] Signature Audit [place] Stage Time Signature Unsigned Intra-Procedure 01/08/2017 Kaitlynn 9:44:52 AM Counts RT(R) Signatures Monitor : Kaitlynn Signature : Counts RT Date : Time : [address] [place] [address]
[~2017-01-08 07:13] MED LIST: AMBIEN10 MG PO; ATIVAN1 MG PO; BAYER CHEWABLE81 MG PO; FLOMAX0.4 MG PO; FLOVENT DI50 MCG/DIS INH; FLUTICASONE PRO16 GM NASAL; KLONOPIN1 MG PO; KRILL OIL 1,001 EAC1 PO; LEXAPRO20 MG PO; LOTENSIN20 MG PO; LYRICA50 MG PO; NORVASC5 MG PO; PLAVIX75 MG PO; PRAVACHOL80 MG PO; PREVACID15 MG PO; TRICOR145 MG PO; ULTRAM50 MG PO; XANAX0.25 MG PO
[2017-01-08 07:34] VITALS: BP 144/78; Ht 172.7 cm; Wt 90.9 kg
[2017-01-08 07:51] LABS: BASOPHILS 0.7 % (0.0-2.0); HEMATOCRIT 42.9 % (42.0-54.0); HEMOGLOBIN 14.4 g/dL (13.5-17.5); IMMATURE GRANULOCYTES 0.2 % (0-5); LYMPHOCYTES 33.6 % (15-50); MCH 30.6 pg (26.0-34.0); MCHC 33.6 g/dL (31.0-37.0); MCV 91.3 fL (80.0-100.0); MEAN PLATELET VOLUME 9.7 fL (7.4-10.4); MONOCYTES 12.2 % (2-11); NEUTROPHILS 47.3 % (40-80); PLATELET COUNT 145 10x3/uL (130-400); RDW 12.8 % (11.5-14.5); WBC 4.5 10x3/uL (4.8-10.8)
[2017-01-08 08:10] LABS: ANION GAP 8.7 mmol/L (8-16); CARBON DIOXIDE 30.9 mmol/L (21.0-32.0); CREATININE - SERUM 1.2 mg/dL (0.6-1.3); POTASSIUM - SERUM 4.6 mmol/L (3.5-5.1)
--- NOTE | 2017-01-08 10:15 | NUR ---
RESTING IN BED, VSS. 2L NASAL CANNULA, NO RESP DISTRESS NOTED. INSTRUCTED PT TO KEEP RIGHT LEG STRAIGHT AND HEAD FLAT ON PILLOW. RIGHT GROIN DRESSING CDI, NO BLEEDING OR HEMATOMA NOTED. PULSES PALPABLE X4. WILL CONTINUE TO MONITOR.
--- NOTE | 2017-01-08 10:45 | NUR ---
RESTING IN BED WITH EYES CLOSED, VSS. NO RESP DISTRESS NOTED. NO C/O N/V OR CHEST PAIN. WILL CONTINUE TO MONITOR.
--- NOTE | 2017-01-08 11:00 | NUR ---
LAYING IN BED WITH EYES CLOSED. RIGHT GROIN DRESSING CDI. NO C/O AT THIS TIME. VSS.
--- NOTE | 2017-01-08 11:30 | NUR ---
DR. HIGUERA AT BEDSIDE SPEAKING WITH PT AND FAMILY. VSS. RIGHT GROIN DRESSING CDI, NO BLEEDING OR HEMATOMA NOTED. NO C/O AT THIS TIME.
--- NOTE | 2017-01-08 12:00 | NUR ---
VSS. NO C/O PAIN OR NAUSEA AT THIS TIME. RIGHT GROIN CDI. NO BLEEDING OR HEMATOMA NOTED.
--- NOTE | 2017-01-08 13:00 | NUR ---
VOIDED 450CC OF CLEAR YELLOW URINE.
--- NOTE | 2017-01-08 13:15 | NUR ---
HOB ELEVATED 30 DEGREES. RIGHT GROIN CDI.
--- NOTE | 2017-01-08 13:40 | NUR ---
LEFT FA PIV D/C'D WITH CATHETER INTACT. UP TO GET DRESSED.
--- NOTE | 2017-01-08 13:51 | NUR ---
DISCHARGE INSTRUCTIONS GIVEN, VERBALIZED UNDERSTANDING. TAKEN OUT VIA WHEELCHAIR BY CATH ASSEMBLY MACHINE OPERATOR. LEFT FACILITY WITH FAMILY MEMBER AND ALL PERSONAL BELONGINGS.
--- NOTE | 2017-01-11 10:08 | OP ---
PATIENT NAME: LIV MAHMOOD MEDICAL RECORD: [id number] :38 LOCATION:D.CAT ADMISSION DATE: SURGEON: CHAPIS HIGUERA MD DATE OF OPERATION: 01/08/2017 PROCEDURES: 1. PTCA stent, RCA. 2. Selective coronary angiography. INDICATIONS: Angina and coronary artery disease. PROCEDURE IN DETAIL: After informed consent was obtained and after a detailed explanation of risks, benefits as well as alternative therapies, the patient elected to proceed with angiogram and angioplasty. The right femoral area is prepped and draped in normal sterile fashion. Right femoral artery was cannulated via modified Seldinger technique with placement of 6-Belarusian sheath. All catheters exchanged through this sheath. FINDINGS: Left ventriculogram was performed in standard 30-degree PEDERSEN view, reveals right coronary has an 80%-90% stenosis in the mid vessel. This was addressed with a 3.5 x 18 mm Integrity stent. Result was 0% residual stenosis. OVERALL IMPRESSION: Successful percutaneous transluminal coronary angioplasty stent of the right coronary artery going from 90% initial stenosis to 0% residual. TRANSINT:[id number] Voice Confirmation ID: [id number] DOCUMENT ID: [id number] CHAPIS HIGUERA MD at 1008 CC: [id number] DICTATION DATE: 01/08/17940 DYE CAN OPERATOR: 01/08/17 1311 DEP CLI 01/08/[address] [facility] [address] [place] [address]
--- NOTE | 2017-01-11 10:08 | HP ---
PATIENT: LIV MAHMOOD MEDICAL RECORD: [id number] ACCOUNT: [id number] LOCATION:[facility] : 38 ADMISSION DATE: 01/08/17 HISTORY AND PHYSICAL EXAMINATION ADMITTING DIAGNOSES: 1. Angina. 2. Coronary artery disease. 3. Recent percutaneous transluminal coronary angioplasty stent of the left anterior descending with concomitant disease of the right coronary artery. HISTORY OF PRESENT ILLNESS: Mr. Mahmood presents with anginal symptomatology, found to have significant disease of the LAD and RCA, underwent successful PTCA stent of the LAD and is now brought for PTCA stent of the RCA. PHYSICAL EXAMINATION: GENERAL APPEARANCE: Well-nourished, well-developed, appears stated age. Level of distress, comfortable. PSYCHIATRIC: Mental status, alert, normal affect. Orientation, oriented to time, place and person. EYES: Lids and conjunctiva, noninjected. No discharge, no pallor. ENT: Lips, teeth, gums, normal dentition. Oropharynx, no cyanosis, no pallor. NECK: Carotid arteries, bilateral normal upstroke, no bruits, no thrills. JUGULAR VEINS: No jugular venous pressure or distention. CERVICAL LYMPH NODES: Nontender, nonenlarged. THYROID: Not enlarged. Nontender. No nodules. LUNGS: Respiratory effort, unlabored. CHEST: Normal curvature. No thoracic deformity. No chest wall tenderness. Percussion, resonant. Auscultation, clear. No wheezes, no rales, no rhonchi. CARDIOVASCULAR: Precordial exam, nondisplaced. No heaves or pericardial thrills. Rate and rhythm, regular. Heart sounds, normal S1, normal S2. No S3, no gallop, no rub. Systolic murmur, not heard. Diastolic murmur, not heard. EXTREMITIES: No cyanosis, no edema. Peripheral pulses, full and equal in all extremities, except as noted. No bruits appreciated. ABDOMEN: Soft, nondistended. Normal aorta. No bruit. Nontender. No masses. Liver, nontender, no hepatomegaly. Spleen, nontender, no splenomegaly. MUSCULOSKELETAL: No joint tenderness. No joint swelling. No erythema. NEUROLOGICAL: Normal gait, normal strength, normal tone. SKIN: Warm and dry. REVIEW OF SYSTEMS: The patient reports easy bruising but reports no swollen glands. The patient reports no fever, no night sweats, no significant weight gain, no significant weight loss. No significant exercise tolerance. The patient reports no dry eyes, no irritation, no vision change. Patient reports no difficulty hearing and no ear pain. Patient reports no frequent nose bleeds or nose and sinus problems. Patient reports on arm pain on exertion. No shortness of breath while lying down. No history of heart murmur. Patient reports no cough, no wheezing or coughing up blood. Patient reports no abdominal pain, no vomiting. Normal appetite. No diarrhea and not vomiting blood. No nausea and no constipation. Patient reports no incontinence. No difficulty urinating. No hematuria. No increased frequency. Patient reports no muscle aches. No weakness, no arthralgias, no back pain. No swelling of the extremities. Patient reports no abnormal mole, no jaundice, no rashes. Reports no loss of consciousness. No weakness and no numbness. No seizures, dizziness, or headaches. The patient reports no depression, no sleep disturbance, feeling HISTORY AND PHYSICAL [id number] LIV MAHMOOD safe in a relationship and no alcohol abuse. Patient reports on fatigue. Reports no runny nose or sinus pressure. No itching, no hives, and no frequent sneezing. OVERALL IMPRESSION: Anginal symptomatology with significant disease of the right coronary artery. We will proceed with PTCA stent of the right coronary artery. TRANSINT:[id number] Voice Confirmation ID: [id number] DOCUMENT ID: [id number] CHAPIS HIGUERA MD at 1008 CC: [id number] DICTATION DATE: 01/08/17915 POOL PLAYER: 01/08/17926 DEP CLI 01/08/17 [place] [id number]
== END 2017-01-08 13:52 | disposition home or self-care (01) ==
LOC: D.CATH 07:13
PROVIDERS: Internal Medicine Interventional Cardiology
DX: I25.119 Atherosclerotic heart disease of native coronary artery with unspecified angina pectoris (principal); Z95.5 Presence of coronary angioplasty implant and graft

== ENCOUNTER 2017-12-03 09:17 | Emergency (ER) | payer MEDICARE ==
[2017-01-08 07:34] VITALS: BMI 30.4
== END 2017-12-03 13:20 | disposition home or self-care (01) ==
LOC: D.ER 09:17
DX: S00.93XA Contusion of unspecified part of head, initial encounter (principal); W06.XXXA Fall from bed, initial encounter; Y93.89 Activity, other specified; Y92.013 Bedroom of single-family (private) house as the place of occurrence of the external cause; M79.1 Myalgia; I10 Essential (primary) hypertension

== ENCOUNTER 2018-03-10 13:33 | Emergency (ER) | payer MEDICARE ==
[2017-01-08 07:34] VITALS: BMI 30.4
[2018-03-10 14:05] LABS: BASOPHILS 0.3 % (0-2); EOSINOPHILS 1.8 % (0-7); HEMATOCRIT 44.5 % (42.0-54.0); HEMOGLOBIN 15.4 g/dL (13.5-17.5); IMMATURE GRANULOCYTES 0.1 % (0-5); LYMPHOCYTES 23.3 % (15-50); MCH 31.5 pg (26.0-34.0); MCHC 34.6 g/dL (31.0-37.0); MEAN PLATELET VOLUME 9.9 fL (7.4-10.4); MONOCYTES 7.9 % (2-11); NEUTROPHILS 66.6 % (40-80); PLATELET COUNT 141 10x3/uL (130-400); RBC 4.89 10x6/uL (4.20-6.10); RDW 12.8 % (11.5-14.5); WBC 6.7 10x3/uL (4.8-10.8)
[2018-03-10 14:28] LABS: ALBUMIN 4.2 g/dL (3.4-5.0); ALKALINE PHOSPHATASE 62 U/L (46-116); ALT (SGPT) 35 U/L (10-68); BILIRUBIN - TOTAL 0.84 mg/dL (0.2-1.3); CALC OSMOLALITY 279 mosm/kg (275-300); CALCIUM 9.5 mg/dL (8.5-10.1); CARBON DIOXIDE 25.6 mmol/L (21.0-32.0); CHLORIDE - SERUM 105 mmol/L (98-107); CREATININE - SERUM 1.3 mg/dL (0.6-1.3); GLUCOSE 108 mg/dL (74-106); POTASSIUM - SERUM 4.1 mmol/L (3.5-5.1); PROTEIN - SERUM 7.4 g/dL (6.4-8.2); SODIUM 139 mmol/L (136-145); UREA NITROGEN 16 mg/dL (7-18); eGFR NON AFRICAN AMERICAN 57 mL/min (90-120)
[2018-03-10 14:39] LABS: CHOL - HDL RATIO 3.3 ratio (2.3-4.9); CHOLESTEROL, TOTAL 156 mg/dL (0-200); CKMB 1.5 U/L (0.0-3.6); CREATINE KINASE 210 UL (21-232); HDL CHOLESTEROL 48 mg/dL (32-96); LDL CHOLESTEROL 83 mg/dL (0-100); LDL-HDL RATIO 1.7 ratio (1.5-3.5); TRIGLYCERIDE 127 mg/dL (30-200); TROPONIN-I < 0.017 ng/mL (0.000-0.060)
== END 2018-03-10 16:36 | disposition home or self-care (01) ==
LOC: D.ER 13:33
PROVIDERS: Emergency Medicine
DX: R07.9 Chest pain, unspecified (principal); R10.9 Unspecified abdominal pain; K59.00 Constipation, unspecified; I10 Essential (primary) hypertension; I49.3 Ventricular premature depolarization

== ENCOUNTER 2018-05-30 05:59 | Emergency (ER) | payer MEDICARE ==
[~2018-05-30] VITALS: Ht 172.7 cm; Wt 99.8 kg
[2018-05-30 06:05] VITALS: Ht 172.7 cm; Wt 99.8 kg
[2018-05-30 06:36] LABS: BASOPHILS 0.8 % (0-2); HEMATOCRIT 44.6 % (42.0-54.0); HEMOGLOBIN 15.4 g/dL (13.5-17.5); IMMATURE GRANULOCYTES 0.2 % (0-5); LYMPHOCYTES 30.3 % (15-50); MCH 30.9 pg (26.0-34.0); MCHC 34.5 g/dL (31.0-37.0); MCV 89.4 fL (80.0-100.0); MEAN PLATELET VOLUME 9.5 fL (7.4-10.4); MONOCYTES 8.8 % (2-11); NEUTROPHILS 52.9 % (40-80); PLATELET COUNT 151 10x3/uL (130-400); RBC 4.99 10x6/uL (4.20-6.10); RDW 12.8 % (11.5-14.5)
[2018-05-30 07:01] LABS: ALBUMIN 3.7 g/dL (3.4-5.0); ALKALINE PHOSPHATASE 75 U/L (46-116); ALT (SGPT) 25 U/L (10-68); BILIRUBIN - TOTAL 0.57 mg/dL (0.2-1.3); CALC OSMOLALITY 278 mosm/kg (275-300); CALCIUM 9.1 mg/dL (8.5-10.1); CARBON DIOXIDE 26.6 mmol/L (21.0-32.0); CHLORIDE - SERUM 106 mmol/L (98-107); GLUCOSE 100 mg/dL (74-106); POTASSIUM - SERUM 3.7 mmol/L (3.5-5.1); PROTEIN - SERUM 7.2 g/dL (6.4-8.2); SODIUM 140 mmol/L (136-145); UREA NITROGEN 13 mg/dL (7-18); eGFR NON AFRICAN AMERICAN 77 mL/min (90-120)
[2018-05-30 07:07] LABS: PROTIME 12.7 SECONDS (11.6-15.0)
[2018-05-30 07:08] LABS: APTT 27.5 SECONDS (22.8-39.4); D-DIMER-QUANTITATIVE 1.3 ug/mLFEU (0.20-0.54); INR 1.01 (0.85-1.17)
[2018-05-30 07:13] LABS: CKMB 2.1 U/L (0.0-3.6); CREATINE KINASE 207 UL (21-232); PRO BNP 302 pg/mL (0-450); TROPONIN-I < 0.017 ng/mL (0.000-0.060)
[2018-05-30 07:20] LABS: AMYLASE - SERUM 39 U/L (25-115); LIPASE 108 U/L (73-393)
[2018-05-30] MEDS ORDERED: AUGMENTIN 875-11 TAB PO (09:06)
[2018-05-30] MEDS ORDERED: NORVASC2.5 MG PO (09:06)
[2018-05-30 09:17] VITALS: BP 172/82
== END 2018-05-30 09:18 | disposition home or self-care (01) ==
LOC: D.ER 05:59
PROVIDERS: Family Medicine
DX: R07.9 Chest pain, unspecified (principal); K57.92 Diverticulitis of intestine, part unspecified, without perforation or abscess without bleeding; I10 Essential (primary) hypertension; R00.1 Bradycardia, unspecified

== ENCOUNTER 2018-08-12 04:04 | Emergency (ER) | payer MEDICARE ==
[~2018-08-12] VITALS: Ht 172.7 cm; Wt 98.9 kg
[~2018-08-12 04:04] MED LIST changes: +AUGMENTIN 875-11 TAB PO; +NORVASC2.5 MG PO
[2018-08-12 04:18] VITALS: Ht 172.7 cm; Wt 98.9 kg
[2018-08-12] MEDS ORDERED: KEFLEX500 MG PO (04:36)
[2018-08-12 04:44] VITALS: BP 125/73
== END 2018-08-12 04:45 | disposition home or self-care (01) ==
LOC: D.ER 04:04
DX: J02.9 Acute pharyngitis, unspecified (principal); R50.9 Fever, unspecified

== ENCOUNTER 2018-09-13 14:31 | Emergency (ER) | payer MEDICARE ==
[~2018-09-13 14:31] MED LIST changes: +KEFLEX500 MG PO
[2018-09-13 14:41] VITALS: Ht 172.7 cm
[2018-09-13 15:27] LABS: BASOPHILS 0.3 % (0-2); EOSINOPHILS 3.8 % (0-7); IMMATURE GRANULOCYTES 0.4 % (0-5); LYMPHOCYTES 24.1 % (15-50); MCH 31.3 pg (26.0-34.0); MCHC 34.9 g/dL (31.0-37.0); MCV 89.6 fL (80.0-100.0); MEAN PLATELET VOLUME 9.1 fL (7.4-10.4); NEUTROPHILS 62.4 % (40-80); PLATELET COUNT 166 10x3/uL (130-400); RDW 12.9 % (11.5-14.5); WBC 6.8 10x3/uL (4.8-10.8)
[2018-09-13 15:41] LABS: ALKALINE PHOSPHATASE 68 U/L (46-116); ALT (SGPT) 49 U/L (10-68); BILIRUBIN - TOTAL 0.42 mg/dL (0.2-1.3); CALC OSMOLALITY 282 mosm/kg (275-300); CALCIUM 9.2 mg/dL (8.5-10.1); CARBON DIOXIDE 23.5 mmol/L (21.0-32.0); CHLORIDE - SERUM 104 mmol/L (98-107); CREATININE - SERUM 1.1 mg/dL (0.6-1.3); GLUCOSE 126 mg/dL (74-106); POTASSIUM - SERUM 3.5 mmol/L (3.5-5.1); PROTEIN - SERUM 7.2 g/dL (6.4-8.2); SODIUM 140 mmol/L (136-145); UREA NITROGEN 18 mg/dL (7-18); eGFR NON AFRICAN AMERICAN 69 mL/min (90-120)
[2018-09-13 15:50] LABS: APTT 26.6 SECONDS (22.8-39.4); INR 1.02 (0.85-1.17)
[2018-09-13 15:51] LABS: D-DIMER-QUANTITATIVE 1.34 ug/mLFEU (0.20-0.54)
[2018-09-13 16:02] LABS: CKMB 2.4 U/L (0.0-3.6); CREATINE KINASE 168 UL (21-232); MAGNESIUM - SERUM 2.2 mg/dL (1.8-2.4)
[2018-09-13 16:05] LABS: TROPONIN-I < 0.017 ng/mL (0.000-0.060)
[2018-09-13] MEDS ORDERED: ELIQUIS5 MG PO (18:29)
[2018-09-13 18:53] VITALS: BP 144/77
== END 2018-09-13 18:55 | disposition home or self-care (01) ==
LOC: D.ER 14:31
PROVIDERS: Family Medicine
DX: I26.99 Other pulmonary embolism without acute cor pulmonale (principal); I10 Essential (primary) hypertension; Z86.718 Personal history of other venous thrombosis and embolism; K21.9 Gastro-esophageal reflux disease without esophagitis

== ENCOUNTER → 2018-10-13 09:00 | Outpatient (CLI) | payer MEDICARE ==
--- NOTE | ~2018-10-13 | ST ---
PATIENT:LIV MAHMOOD MEDICAL RECORD: [id number] SEX: M LOCATION:[facility] ORDER #: ADMISSION DATE: 10/13/18 AGE OF PATIENT: 77 REFERRING PHYSICIAN: INTERPRETING PHYSICIAN: CHAPIS HIGUERA MD DATE OF SERVICE: 10/13/2018 PROCEDURE: Nuclear stress test. INDICATION: Chest pain, angina, coronary artery disease, hypertension, and hyperlipidemia. He was exercised on standard Lexiscan protocol with 32 mCi of sestamibi injected at peak stress, 10 mCi were used previously for rest images. FINDINGS: Gated SPECT reveals preserved ejection fraction at 53% with good wall motion and thickening and brightening throughout all segments. SPECT imaging Cardiolite was used as myocardial fusion agent. There is homogeneous uptake throughout all segments at rest and stress with no evidence of inducible ischemia or previous infarction. OVERALL IMPRESSION: 1. This is a normal nuclear stress test with no evidence of inducible ischemia or previous infarction. 2. Gated SPECT reveals a preserved ejection fraction at 53%. In this patient with ongoing symptomatology, the current scan does not suggest the presence of hemodynamically significant coronary artery disease. Evaluate noncardiac etiology of chest pain. TRANSINT:[id number] Voice Confirmation ID: [id number] DOCUMENT ID: [id number] CHAPIS HIGUERA MD CC: [id number] DICTATION DATE: 10/14/18801 PERSONAL CHEF: 10/14/182058 [facility] CLI 10/13/18 [place] [id number] [place] [address]
[~2018-10-13 09:00] MED LIST changes: +ELIQUIS5 MG PO
== END | disposition home or self-care (01) ==
LOC: D.HCCARDIO 09:00
DX: I25.10 Atherosclerotic heart disease of native coronary artery without angina pectoris (principal)

== ENCOUNTER → 2019-06-07 10:29 | Outpatient (CLI) | payer MEDICARE | END | disposition home or self-care (01) | LOC: D.CT 10:29 | PROVIDERS: ATTEND Thoracic Surgery (Cardiothoracic Vascular Surgery) | DX: I71.4 Abdominal aortic aneurysm, without rupture (principal) ==

== ENCOUNTER → 2019-07-31 08:36 | Outpatient (CLI) | payer MEDICARE ==
--- NOTE | 2019-08-10 13:30 | EC ---
PATIENT:LIV MAHMOOD DATE OF SERVICE: 07/31/19 SEX: M MEDICAL RECORD: [id number] DATE OF : 38 LOCATION:[facility] AGE OF PATIENT: 78 ADMISSION DATE: 07/31/19 REFERRING PHYSICIAN: INTERPRETING PHYSICIAN: CHAPIS SWEENEY MD ECHOCARDIOGRAM REPORT ECHO CHARGES 4 ECHO COMPLETE Date: 07/31/19 CLINICAL DIAGNOSIS: EDEMA H/O CAD/HTN ECHOCARDIOGRAPHIC MEASUREMENTS (adult normal given) AC root (d.<3.7cm) 3.9 cm LV Septum d (<1.2 cm> 1.2 cm Valve Excursion 2.1 cm LV Septum (systole) 1.7 cm Left Atria (s.<4.0cm> 4.4 cm LVPW d(<1.2cm) 1.0 cm RV (d.<2.3cm) 2.5 cm LVPW (sytole) 1.6 cm LV diastole(<5.6CM) 6.4 cm MV E-F(>70mm/sec) cm LV systole 4.2 cm LVOT Diameter 2.1 cm MV exc.(>10mm) cm Est.ejection fraction (50-75%) % DOPPLER: LVIT cm/sec A 69.0 cm/sec E 54.0 cm/sec LA cm/sec RVSP 22.0 mmHg LVOT 100 cm/sec AOP1/2T m/s Asc. Ao 127 cm/sec RVOT 55.0 cm/sec RA cm/sec PA 76.0 cm/sec AV Gradient Peak 6.4 mmHg AV Mean 3.5 mmHg AV Area 2.4 cm MV Gradient Peak 2.4 mmHg MV Mean 0.58 mmHg MV Area cm COMMENTS: OP - HC Quality Management Coordinator: 1 SILVIANO COUNCE Deck Molder: 1 Dr. Sweeney TAPE# PACS Pericardial Effusion N DATE OF SERVICE: PROCEDURE: Echocardiogram. FINDINGS: 1. Left ventricular chamber size is dilated. Left ventricular systolic function is mildly reduced at 40%. 2. Left atrium is enlarged at 4.4 cm. Right atrium and right ventricular chamber sizes are within normal limits. 3. Valvular structures have normal structure and motion. ECHOCARDIOGRAM REPORT [id number] LIV MAHMOOD 4. Doppler interrogation reveals trace mitral regurgitation, no other valvular insufficiency or stenosis. Pulmonary systolic pressure is estimated at 22 mmHg. 5. No evidence of pericardial effusion or left ventricular thrombus. TRANSINT:[id number] Voice Confirmation ID: [id number] DOCUMENT ID: [id number] CHAPIS SWEENEY MD at 1330 CC: [id number] DICTATION DATE: 08/01/19 180 SCAGLIOLA MECHANIC: 08/02/19 0151 DEP CLI 07/31/19 [place] [address] [place] [address]
== END | disposition home or self-care (01) ==
LOC: D.HCCECHO 08:36
PROVIDERS: ATTEND Internal Medicine Interventional Cardiology
DX: R06.00 Dyspnea, unspecified (principal)

== ENCOUNTER 2019-12-26 06:29 | Emergency (ER) | payer MEDICARE ==
[~2019-12-26] VITALS: Ht 172.7 cm; Wt 104.5 kg
[2019-12-26 06:35] VITALS: Ht 172.7 cm; Wt 104.5 kg
[2019-12-26] MEDS ORDERED: KLONOPIN1 MG PO (06:37)
[2019-12-26 07:11] LABS: BASOPHILS 0.5 % (0-2); HEMATOCRIT 42.8 % (42.0-54.0); HEMOGLOBIN 14.5 g/dL (13.5-17.5); IMMATURE GRANULOCYTES 0.3 % (0-5); LYMPHOCYTES 17.5 % (15-50); MCH 31.5 pg (26.0-34.0); MCHC 33.9 g/dL (31.0-37.0); MCV 92.8 fL (80.0-100.0); MEAN PLATELET VOLUME 8.8 fL (7.4-10.4); MONOCYTES 6.8 % (2-11); NEUTROPHILS 71.9 % (40-80); RBC 4.61 10x6/uL (4.20-6.10); RDW 12.7 % (11.5-14.5); WBC 3.7 10x3/uL (4.8-10.8)
[2019-12-26 07:14] LABS: PLATELET COUNT 127 10x3/uL (130-400)
[2019-12-26 07:20] LABS: APTT 29.4 SECONDS (22.8-39.4); CALC OSMOLALITY 281 mosm/kg (275-300); CARBON DIOXIDE 27.7 mmol/L (21.0-32.0); CHLORIDE - SERUM 102 mmol/L (98-107); CREATININE - SERUM 1.5 mg/dL (0.6-1.3); GLUCOSE 131 mg/dL (74-106); INR 1.2 (0.85-1.17); PROTIME 15.1 SECONDS (11.6-15.0); SODIUM 139 mmol/L (136-145); UREA NITROGEN 17 mg/dL (7-18); eGFR NON AFRICAN AMERICAN 48 mL/min (90-120)
[2019-12-26 07:22] LABS: D-DIMER-QUANTITATIVE 0.4 ug/mLFEU (0.20-0.54)
[2019-12-26 07:37] LABS: ALBUMIN 4.1 g/dL (3.4-5.0); ALKALINE PHOSPHATASE 73 U/L (30-120); ALT (SGPT) 46 U/L (10-68); BILIRUBIN - TOTAL 0.72 mg/dL (0.2-1.3); CKMB 4.9 U/L (0.0-3.6); CREATINE KINASE 411 UL (21-232); LIPASE 72 U/L (73-393); PRO BNP 98 pg/mL (0-450); PROTEIN - SERUM 7.6 g/dL (6.4-8.2); TROPONIN-I < 0.017 ng/mL (0.000-0.060)
[2019-12-26 08:24] LABS: BILIRUBIN NEGATIVE (NEGATIVE); GLUCOSE NEGATIVE (NEGATIVE); KETONE NEGATIVE (NEGATIVE); NITRITE NEGATIVE (NEGATIVE)
[2019-12-26 09:53] VITALS: BP 138/74
== END 2019-12-26 09:45 | disposition home or self-care (01) ==
LOC: D.ER 06:29
PROVIDERS: Emergency Medicine
DX: F41.9 Anxiety disorder, unspecified (principal); R10.9 Unspecified abdominal pain; R07.9 Chest pain, unspecified; I10 Essential (primary) hypertension; K21.9 Gastro-esophageal reflux disease without esophagitis